=== PATIENT | male | born 1960 | race African-American/Black ===

== ENCOUNTER → 2019-08-25 | Outpatient (CLI) | payer OTHER ==
[~2019-08-25] MED LIST: FLEXERIL PO; FLOVENT DISKUS50 MCG IH; IBUPROFEN 600600 M1 PO; LEVOTHROID150 MCG PO; NORCO 5-325 TA1 EACH PO; OMEPRAZOLE40 MG PO
== END ==
LOC: SJCVCIMAG 13:01
DX: I08.8 Other rheumatic multiple valve diseases (principal); R06.09 Other forms of dyspnea; E78.5 Hyperlipidemia, unspecified; J30.1 Allergic rhinitis due to pollen

== ENCOUNTER → 2019-12-22 | Outpatient (CLI) | payer OTHER | LOC: SJCVCIMAG 15:22 | PROVIDERS: ATTEND Internal Medicine | DX: R06.09 Other forms of dyspnea (principal); I34.0 Nonrheumatic mitral (valve) insufficiency; E78.5 Hyperlipidemia, unspecified; Z88.0 Allergy status to penicillin ==